=== PATIENT | female | born 1975 | race Caucasian/White ===

== ENCOUNTER 2025-02-08 08:20 | Day surgery (SDC) | payer OTHER, SELFPAY ==
[2025-02-05 13:23] VITALS: BMI 30.8
--- NOTE | ~2025-02-08 | XR_ITS ---
INTRAOPERATIVE FLUOROSCOPY: CLINICAL HISTORY: 49 years old Female; COCCYGEAL X3 BILATERAL COCCYGEAL NERVE BLOCKS TRANS ARTICULA PROCEDURE COMMENTS: Limited intraoperative fluoroscopy of the sacrum was performed. CUMULATIVE DOSE: 47 mGy FLUOROSCOPY TIME: 73 seconds FINDINGS/IMPRESSION: Please refer to operative note for further details. Reviewed, dictated and finalized at location A.
--- NOTE | 2025-02-08 09:04 | WPDHPUPDATE1 ---
History and Physical Update Update Date/Time: 02/08/25 09:04 History and Physical has been reviewed, including an updated exam of the patient. There are NO changes in the patient's condition. Risks, benefits, and alternatives have been discussed and questions answered. Patient agrees to proceed with procedure.
--- NOTE | 2025-02-08 09:05 | P.OP_ITS ---
Procedure Note - Detailed Date of Procedure 02/08/25 Pre-op Diagnosis Sacrococcygeal Disorders, Not Elsewhere Classified Post-op Diagnosis Same Procedure Performed Coccygeal Joint injections x3 (S1-Co1, Co1-2, Co2-3), bilateral coccygeal peripheral nerve block, transarticular ganglion impar block under Fluoroscopic Guidance and with Contrast Control. Surgeon Iftikhar Harper MD Anesthesia Local Description of Procedure INFORMED CONSENT: Risks, benefits and alternatives to the procedure were discu ssed in detail with the patient who expressed explicit understanding and consent to proceed. Patient was informed verbally and in written form regarding the risks associated with the procedure including the low risk of serious infection, bleeding/bruising, allergic reaction, nerve or organ injury, paralysis, procedural site pain or discomfort, worsening pain and/or mobility, failure to treat and/or disfigurement. The patient expressed explicit understanding and consent to proceed. All materials required for the procedure were available prior to procedure start. Site and side was marked prior to procedure and confirmed in the presence of the patient. PROCEDURE IN DETAIL: The patient was brought to the procedural suite and placed in the prone position. Patient was made comfortable with use of pillows under the head/chest, hips and ankles. Skin overlying the injection site was prepared broadly with ChloraPrep applicator and draped in a sterile manner. Aseptic te chnique was employed throughout. The body of the sacrum was visualized in the AP view. Slight caudal tilt was utilized to optimize visualization of the joint spaces between the coccygeal vertebrae and the lateral border of the coccyx. Local anesthesia was established by infiltration with approximately 5 mL of 2% lidocaine via a 1-1/2 inch 27-gauge needle. A 22-gauge 3.5 inch Quincke spinal needle was advanced intermittently until the S1-Co1 joint was entered. Lateral view was used to confirm the appropriate positioning of the needle tip just ventral to the ventral border of the coccyx. Approximately 1 mL of Omnipaque 300 contrast dye was injected showing appropriate anterior spread without intravascular or intrathecal spread. After negative aspiration for blood or bodily fluid a total of 3 mL of 0.5% preservative-free bupivacaine containing 2 mg of betamethasone was injected to effectively block the ganglion impar. Needle was retracted until within the joint and additional 1.0 ml of injectate containing 1 mg of betamethasone was injected intra-articular. Needle was then withdrawn and redirected to enter the Co1-2 and Co2-3 joints respectively. An additional [0.5] mL of contrast dye was injected into each joint showing appropriate intra-articular spread without evidence of intravascular or intrathecal spread. An additional 1.0 ml with 1 mg of betamethasone was injected in each joint. Attention was then turned to completion of the bilateral coccygeal nerve block. In the AP view, needle was walked off laterally to the left of midline and anteriorly until just dorsal to the anterior border of the coccyx in the lateral view. 1.0 mL of Omnipaque 300 contrast medium was injected after negative aspiration for CSF, blood or other bodily fluid, showing appropriate spread within the targeted tissue plane. A 1 mL solution containing 0.5 mg of betamethasone in sterile 0.5% PF bupivacaine was injected after negative repeat aspiration to effectively block the left coccygeal nerve. Appropriate spread of the injectate was confirmed with washout of previously injected contrast. No parasthesias were elicited. Needle was removed completely intact without difficulty. The same procedure was repeated on the contralateral side, blocking the right coccygeal nerve, with identical methodology modified to compensate for contralateral location, with similar results and no evidence of complication. Patient tolerated this well. Needle was removed intact without difficulty. Images were saved and documented in the patient chart. Patient's skin was cleansed and sterile bandage applied. The patient tolerated the procedure well. The patient was transported to the recovery area in stable condition where they were observed for an appropriate amount of time prior to discharge, without evidence of complication. The patient was instructed to avoid excessive activity for the next 48 hours, including climbing and frequent use of stairs. Showers only for 48 hours. They were instructed not to drive or operate heavy machinery for 24 hours. They are to monitor for severe headaches, fevers, chills, night sweats, erythema/swelling at the site or any other signs of infection, bleeding/bruising, bowel or bladder changes as well as new pain, weakness or numbness in the upper or lower extremity. Should they notice these changes, they are instructed to call our office immediately or report directly to the nearest Emergency Department if no answer or if after posted office hours. CONTRAST WASTED: [15.5]ml of Omnipaque 300. Complications No immediate complications Condition Stable Disposition Same day [facility] Billing Surgery - Charge Forward: Surgery Billing
[2025-02-08 09:20] VITALS: BP 111/76; PULSE 57; RESP 18; TEMP 36.7; O2SAT 99; BMI 31.0
[2025-02-08 09:52] VITALS: BP 140/76; PULSE 56; RESP 14; O2SAT 98
[2025-02-08 09:57] VITALS: BP 138/74; PULSE 55; RESP 12; O2SAT 97
[2025-02-08 10:01] VITALS: BP 134/78; PULSE 55; RESP 14; O2SAT 98
[2025-02-08] MEDS: BUPivacaine HCL 0.5% 10 ML AMP INFILTRATE (10:02)
[2025-02-08] MEDS: BETAMETHASONE SODIUM PHOSPHATE PF INJ 6 MG/ML VIAL INFILTRATE (10:02)
[2025-02-08] MEDS: LIDOCAINE 1% PF INJ 5 ML VIAL INFILTRATE (10:02)
[2025-02-08 10:07] VITALS: BP 131/79; PULSE 59; RESP 18; O2SAT 100
== END 2025-02-08 10:18 | disposition home or self-care (01) ==
PROVIDERS: Visit Provider Anesthesiology Pain Medicine
PROC: (CPT 64450; principal; 2025-02-08 09:30)
DX: M53.3 Sacrococcygeal disorders, not elsewhere classified (principal)
CPT/HCPCS: 64450; 20605; 64999; 99199